=== PATIENT | male | born 2000 | race Two or more races ===

== ENCOUNTER 2022-05-23 07:44 | Emergency (ER) | payer OTHER ==
[~2022-05-23] VITALS: Ht 160 cm; Wt 45.4 kg
== END 2022-05-23 09:55 | disposition home or self-care (01) ==
LOC: ER 07:44 → EMR PED 07:44
DX: S52.123A Displaced fracture of head of unspecified radius, initial encounter for closed fracture (principal); S60.222A Contusion of left hand, initial encounter; V29.99XA Rider (driver) (passenger) of other motorcycle injured in unspecified traffic accident, initial encounter; Y93.89 Activity, other specified; Y92.413 State road as the place of occurrence of the external cause; Y99.9 Unspecified external cause status; Z88.8 Allergy status to other drugs, medicaments and biological substances